=== PATIENT | male | born 1950 | race Caucasian/White ===

== ENCOUNTER 2016-12-24 00:24 | Inpatient (IN) | payer BC, MEDICARE ==
--- NOTE | 2016-12-24 00:42 | RADIOLOGY REPORT (SQ) ---
EXAM DESCRIPTION: CT HEAD WITHOUT COMPLETED DATE/TIME: 12/24/2016 12:30 am REASON FOR STUDY: stroke alert COMPARISON: None. TECHNIQUE: Axial images acquired through the brain without intravenous contrast. Images reviewed wi th bone, brain and subdural windows. Images stored on PACS. All CT scanners at this facility use dose modulation, iterative reconstruction, and/or weight based d osing when appropriate to reduce radiation dose to as low as reasonably achievable (ALARA). [facility]: Dose Right [facility]: CareDose [facility]: Dose Right [facility]: Teradose 4D [facility]: Smart The Editorialist RADIATION DOSE: Up-to-date CT equipment and radiation dose reduction techniques were employed. CTDIv ol: 64.6 mGy. DLP: 1163 mGy-cm. mGy. LIMITATIONS: None. FINDINGS: VENTRICLES: Normal size and contour. CEREBRUM: No masses. No hemorrhage. No midline shift. Normal cherry/white matter differentiation. N o evidence for acute infarction. CEREBELLUM: No masses. No hemorrhage. No alteration of density. No evidence for acute infarction. EXTRAAXIAL SPACES: No fluid collections. No masses. ORBITS AND GLOBE: No intra- or extraconal masses. Normal contour of globe without masses. CALVARIUM: No fracture. PARANASAL SINUSES: 0.8 cm left maxillary retention cyst- mucocele. SOFT TISSUES: No mass or hematoma. OTHER: No other significant finding. IMPRESSION: No acute findings. COMMENT: This report was called to ER PROVIDER at00:33 on 12/24/2016. TECHNICAL DOCUMENTATION: JOB ID: [id number] Quality ID # [id number]: Final reports with documentation of one or more dose reduction techniques (e.g., Au tomated exposure control, adjustment of the mA and/or kV according to patient size, use of iterative reconstruction technique) 2010 [employer]- All Rights Reserved
[2016-12-24 01:01] LABS: ABSOLUTE BASOPHILS # (AUTO) 0.1 10^3/uL (0.0-0.2); ABSOLUTE EOSINOPHILS # (AUTO) 0.1 10^3/uL (0.0-0.6); ABSOLUTE LYMPHOCYTES (AUTO) 2.9 10^3/uL (0.5-4.7); ABSOLUTE MONOCYTES (AUTO) 0.6 10^3/uL (0.1-1.4); ABSOLUTE NEUT (AUTO) 4.7 10^3/uL (1.7-8.2); BASOPHILS % (AUTO) 1.2 % (0-2); EOSINOPHILS % (AUTO) 1.1 % (0-6); HEMATOCRIT 44.7 % (37.9-51.0); HEMOGLOBIN 15.3 g/dL (13.5-17.0); HGB HCT DIFFERENCE 1.2; LYMPHOCYTES % (AUTO) 34.3 % (13-45); MEAN CORPUSCULAR HEMOGLOBIN 32.3 pg (27.0-33.4); MEAN CORPUSCULAR HGB CONC 34.3 g/dL (32.0-36.0); MEAN CORPUSCULAR VOLUME 94 fl (80-97); MONOCYTES % (AUTO) 7.1 % (3-13); RED BLOOD COUNT 4.74 10^6/uL (4.35-5.55); RED CELL DISTRIBUTION WIDTH 13.2 % (11.5-14.0); SEGMENTED NEUTROPHILS % (AUTO) 56.3 % (42-78); WHITE BLOOD COUNT 8.4 10^3/uL (4.0-10.5)
--- NOTE | 2016-12-24 01:07 | RADIOLOGY REPORT (SQ) ---
EXAM DESCRIPTION: CHEST SINGLE VIEW COMPLETED DATE/TIME: 12/24/2016 12:41 am REASON FOR STUDY: stroke alert COMPARISON: None. EXAM PARAMETERS: NUMBER OF VIEWS: One view. TECHNIQUE: Single frontal radiographic view of the chest acquired. RADIATION DOSE: NA LIMITATIONS: None. FINDINGS: LUNGS AND PLEURA: No opacities, masses or pneumothorax. No pleural effusion. MEDIASTINUM AND HILAR STRUCTURES: No masses. Contour normal. HEART AND VASCULAR STRUCTURES: Heart normal in size. Normal vasculature. BONES: No acute findings. HARDWARE: None in the chest. OTHER: No other significant finding. IMPRESSION: NO ACUTE RADIOGRAPHIC FINDING IN THE CHEST. TECHNICAL DOCUMENTATION: JOB ID: [id number]
[2016-12-24 01:10] LABS: PROTHROMBIN TIME 12.5 SEC (11.4-15.4)
[2016-12-24 01:12] LABS: ALANINE AMINOTRANSFERASE 52 U/L (21-72); ALBUMIN 4.5 g/dL (3.5-5.0); ALKALINE PHOSPHATASE 144 U/L (38-126); ANION GAP 13 (5-19); ASPARTATE AMINO TRANSFERASE 36 U/L (17-59); BILIRUBIN,DIRECT 0.4 mg/dL (0.0-0.4); BILIRUBIN,TOTAL 0.6 mg/dL (0.2-1.3); BLOOD UREA NITROGEN 27 mg/dL (7-20); CALCIUM 9.9 mg/dL (8.4-10.2); CARBON DIOXIDE 25 mmol/L (22-30); CHLORIDE 104 mmol/L (98-107); CREATINE KINASE 187 U/L (55-170); CREATININE RESULT 1.56 mg/dL (0.52-1.25); GLUCOSE 94 mg/dL (75-110); POTASSIUM 4.1 mmol/L (3.6-5.0); SODIUM 141.5 mmol/L (137-145); TOTAL PROTEIN 7.4 g/dL (6.3-8.2)
[2016-12-24] MEDS ORDERED: ASPIRIN 81 MG TABLET, CHEWABLE PO ONE (01:15)
[2016-12-24] MEDS ORDERED: CLOPIDOGREL BISULFATE 300 MG TABLET PO ONE (01:15)
--- NOTE | 2016-12-24 01:15 | ER Document Report ---
ED General - General Chief Complaint: S/S of Possible Stroke Stated Complaint: POSSIBLE STROKE Time Seen by Provider: 12/24/16 01:12 Notes: Patient is a 66-year-old male with past medical history of hypertension, hyperlipidemia, prior [place] who presents with acute onset of left sided weakness and numbness now resolved. Patient states that he woke up from sleep and did have notable left-sided numbness and difficulty walking secondary to weakness. EMS was contacted and reports that time of arrival patient did have a left- sided facial droop, left upper and lower extremity weakness as well as decreased sensation. At time of arrival patient reports the symptoms have resolved. He denies any history of similar symptoms in the past. Nothing improves or worsens his symptoms. He states he has been taking all his medications as directed. He denies any headache, chest pain or shortness of breath. TRAVEL OUTSIDE OF THE [place] IN LAST 30 DAYS: No - Related Data Allergies/Adverse Reactions: lisinopril Allergy (Verified 12/24/16 00:45) Penicillins Allergy (Verified 12/24/16 00:45) Home Medications: Current Home Medications Atorvastatin Calcium 40 mg PO DAILY 12/24/16 [History] Esomeprazole Magnesium [Nexium 24Hr] 1 tab PO DAILY 12/24/16 [History] Fenofibrate Nanocrystallized [Fenofibrate] 48 mg PO DAILY 12/24/16 [History] Levothyroxine Sodium [Synthroid 0.05 mg Tablet] 50 mcg PO DAILY 12/24/16 [ History] Losartan/Hydrochlorothiazide [Hyzaar 50-12.5 Tablet] 1 tab PO DAILY 12/24/16 [ History] Past Medical History - General Information source: Patient - Social History Smoking Status: Never Smoker Frequency of alcohol use: None Drug Abuse: None Lives with: Spouse/Significant other Family History: Reviewed & Not Pertinent - Past Medical History Cardiac Medical History: Reports: Hx Hypercholesterolemia, Hx Hypertension Past Surgical History: Reports: Hx Appendectomy Review of Systems - Review of Systems Notes: Constitutional: Negative for fever. HENT: Negative for sore throat. Eyes: Negative for visual changes. Cardiovascular: Negative for chest pain. Respiratory: Negative for shortness of breath. Gastrointestinal: Negative for abdominal pain, vomiting or diarrhea. Genitourinary: Negative for dysuria. Musculoskeletal: Negative for back pain. Skin: Negative for rash. Neurological: Negative for headaches, positive for left-sided weakness and numbness now resolved 10 point ROS negative except as marked above and in HPI. Physical Exam - Vital signs Vitals: Pulse Ox 99 12/24/16 00:25 Interpretation: Normal Notes: PHYSICAL EXAMINATION: GENERAL: Well-appearing, well-nourished and in no acute distress. HEAD: Atraumatic, normocephalic. EYES: Pupils equal round and reactive to light, extraocular movements intact, sclera anicteric, conjunctiva are normal. ENT: nares patent, oropharynx clear without exudates. Moist mucous membranes. NECK: Normal range of motion, supple without lymphadenopathy LUNGS: Breath sounds clear to auscultation bilaterally and equal. No wheezes rales or rhonchi. HEART: Regular rate and rhythm without murmurs ABDOMEN: Soft, nontender, normoactive bowel sounds. No guarding, no rebound. No masses appreciated. EXTREMITIES: Normal range of motion, no pitting or edema. No cyanosis. NEUROLOGICAL: Face symmetric. Tongue protrudes midline. Extraocular motions intact. Pupils are 2 mm and equally reactive. Normal speech, normal gait. 5 out of 5 strength in both the distal and proximal upper and lower extremities bilaterally. Sensation is grossly intact throughout. Finger to nose testing normal. Pronator drift normal. PSYCH: Normal mood, normal affect. SKIN: Warm, Dry, normal turgor, no rashes or lesions noted. Course - Re-evaluation Re-evalutation: 12/24/16 0040 Patient presents with findings most consistent with a TIA. Patient had a left- sided filter droop and left-sided weakness with associated numbness per EMS on initial exam. At time of my assessment patient has no focal neurologic deficits , NIH stroke scale is 0. Total symptom time appears to be approximately 45 minutes. Patient does have multiple risk factors including hypertension, hyperlipidemia and a prior smoking history. He is CT of the head is unremarkable. Initial laboratories likewise without any acute findings. He has been given an aspirin and will be admitted to the hospitalist service 12/24/16 02:04 ABCD2 score is calculated to 5 placing patient in a moderate to high risk group. He remains without any neurologic symptoms. He has been given a load of Plavix as well as aspirin. I have discussed this case with Dr. Nehemias Flores who will admit. - Vital Signs Vital signs: Temp Pulse Resp BP Pulse Ox 97 16 164/94 H 99 12/24/16 00:26 12/24/16 00:48 12/24/16 00:48 12/24/16 00:48 - Laboratory Result Diagrams: 12/24/16 00:44 12/24/16 00:44 Laboratory results interpreted by me: 12/24/16 00:44 BUN 27 H Creatinine 1.56 H Est GFR ( Amer) 54 L Est GFR (Non-Af Amer) 45 L Alkaline Phosphatase 144 H Creatine Kinase 187 H - Diagnostic Test Radiology reviewed: Image reviewed, Reports reviewed Radiology results interpreted by me: 12/24/16 02:05 CT head: No acute intracranial bleed 12/24/16 02:05 Chest x-ray: No acute infiltrate or pneumothorax - EKG Interpretation by Me Additional EKG results interpreted by me: 12/24/16 02:05 Sinus bradycardia. Rate 58. No ST elevations or depressions. QTC is 393. Discharge - Discharge Clinical Impression: TIA (transient ischemic attack) Qualifiers: Transient cerebral ischemia type: unspecified Qualified Code(s): G45.9 - Transient cerebral ischemic attack, unspecified Condition: Fair Disposition: ADMITTED OBSERVATION Admitting Provider: Hospitalist - Mark Unit Admitted: [facility]
[2016-12-24 01:29] LABS: TROPONIN I < 0.012 ng/mL
[2016-12-24] MEDS ORDERED: ATORVASTATIN CALCIUM 80 MG TABLET PO ONE ×2 (02:06→09:00)
[2016-12-24] MEDS ORDERED: ACETAMINOPHEN 325 MG TABLET PO PRN (02:07)
--- NOTE | 2016-12-24 05:52 | PDOC H&P ---
History of Present Illness Admission Date/PCP: 12/24/16 02:07 DORYS AVERY PA-C Patient complains of: Left-sided weakness History of Present Illness: MARTINE DUNHAM is a 66 year old male with a past medical history of hypertension, dyslipidemia and hypothyroidism who would been in his usual state of health until approximately 1 hour prior to presentation with left-sided numbness and weakness followed by left facial droop. Brought to the emergency room for evaluation is found to be significantly improved but with residual symptoms and a blood pressure of 198/111. He denies previous episode, change in medications, headache, chest pain or palpitations receives aspirin and Plavix and has CT brain, EKG and lab work. He is referred to the hospitalist for admission. Past Medical History Cardiac Medical History: Reports: Hyperlipidema, Hypertension Past Surgical History Past Surgical History: Reports: Appendectomy Social History Lives with: Spouse/Significant other Smoking Status: Never Smoker Frequency of Alcohol Use: None Drugs: None - Advance Directive Resuscitation Status: Full Code Family History Family History: CAD, Hypertension Parental Family History Reviewed: Yes Children Family History Reviewed: Yes Sibling(s) Family History Reviewed.: Yes Medication/Allergy Home Medications: Atorvastatin Calcium 40 mg PO DAILY 12/24/16 Esomeprazole Magnesium [Nexium 24Hr] 1 tab PO DAILY 12/24/16 Fenofibrate Nanocrystallized [Fenofibrate] 48 mg PO DAILY 12/24/16 Levothyroxine Sodium [Synthroid 0.05 mg Tablet] 50 mcg PO DAILY 12/24/16 Losartan/Hydrochlorothiazide [Hyzaar 50-12.5 Tablet] 1 tab PO DAILY 12/24/16 Allergies/Adverse Reactions: lisinopril Allergy (Verified 12/24/16 00:45) Penicillins Allergy (Verified 12/24/16 00:45) Review of Systems Constitutional: ABSENT: chills, fever(s), headache(s), weight gain, weight loss Eyes: ABSENT: visual disturbances Ears: ABSENT: hearing changes Cardiovascular: ABSENT: chest pain, dyspnea on exertion, edema, orthropnea, palpitations Respiratory: ABSENT: cough, hemoptysis Gastrointestinal: ABSENT: abdominal pain, constipation, diarrhea, hematemesis, hematochezia, nausea, vomiting Genitourinary: ABSENT: dysuria, hematuria Musculoskeletal: ABSENT: joint swelling Integumentary: ABSENT: rash, wounds Neurological: ABSENT: abnormal gait, abnormal speech, confusion, dizziness, focal weakness, syncope Psychiatric: ABSENT: anxiety, depression, homidical ideation, suicidal ideation Endocrine: ABSENT: cold intolerance, heat intolerance, polydipsia, polyuria Hematologic/Lymphatic: ABSENT: easy bleeding, easy bruising Physical Exam Vital Signs: Temp Pulse Resp BP Pulse Ox 97 16 164/94 H 99 12/24/16 00:26 12/24/16 00:48 12/24/16 00:48 12/24/16 00:48 General appearance: PRESENT: no acute distress, well-developed, well-nourished Head exam: PRESENT: atraumatic, normocephalic Eye exam: PRESENT: conjunctiva pink, EOMI, PERRLA. ABSENT: scleral icterus Ear exam: PRESENT: normal external ear exam Mouth exam: PRESENT: moist, tongue midline Neck exam: ABSENT: carotid bruit, JVD, lymphadenopathy, thyromegaly Respiratory exam: PRESENT: clear to auscultation maria de jesus. ABSENT: rales, rhonchi, wheezes Cardiovascular exam: PRESENT: RRR, systolic murmur. ABSENT: diastolic murmur, rubs Pulses: PRESENT: normal dorsalis pedis pul Vascular exam: PRESENT: normal capillary refill GI/Abdominal exam: PRESENT: normal bowel sounds, soft. ABSENT: distended, guarding, mass, organolmegaly, rebound, tenderness Rectal exam: PRESENT: deferred Extremities exam: PRESENT: full ROM. ABSENT: calf tenderness, clubbing, pedal edema Musculoskeletal exam: PRESENT: other - Left-sided 4+ out of 5 weakness Neurological exam: PRESENT: alert, awake, oriented to person, oriented to place , oriented to time, oriented to situation, CN II-XII grossly intact. ABSENT: motor sensory deficit Psychiatric exam: PRESENT: appropriate affect, normal mood. ABSENT: homicidal ideation, suicidal ideation Skin exam: PRESENT: dry, intact, warm. ABSENT: cyanosis, rash Results Impressions: Chest X-Ray 12/24/16 00:25 IMPRESSION: NO ACUTE RADIOGRAPHIC FINDING IN THE CHEST. Head CT 12/24/16 00:25 IMPRESSION: No acute findings. Assessment & Plan - Diagnosis (1) TIA (transient ischemic attack) Qualifiers: Transient cerebral ischemia type: unspecified Qualified Code(s): G45.9 - Transient cerebral ischemic attack, unspecified Is this a current diagnosis for this admission?: Yes Plan: Residual left-sided weakness, admitted with CVA care set, permissive hypertension, aspirin and Lipitor. Follow-up imaging and labs (2) Hypertensive emergency Is this a current diagnosis for this admission?: Yes Plan: Permissive hypertension Lopressor as needed systolic pressure greater than 200. - Time Time Spent: 50 to 70 Minutes - Inpatient Certification Medical Necessity: Need Close Monitoring Due to Risk of Patient Decompensation
[2016-12-24] MEDS ORDERED: HEPARIN SOD (PORCINE) 5,000 UNIT/ML 1 ML SYRINGE SUBCUT SCH (06:00)
[2016-12-24 06:45] LABS: ANION GAP 10 (5-19); BLOOD UREA NITROGEN 28 mg/dL (7-20); CALCIUM 9.5 mg/dL (8.4-10.2); CARBON DIOXIDE 21 mmol/L (22-30); CHLORIDE 107 mmol/L (98-107); CREATININE RESULT 1.39 mg/dL (0.52-1.25); GLUCOSE 96 mg/dL (75-110); POTASSIUM 4.4 mmol/L (3.6-5.0)
[2016-12-24] MEDS ORDERED: LORAZEPAM INJ 2 MG/1 ML VIAL IV ONE (08:45)
--- NOTE | 2016-12-24 08:45 | EKG REPORT ---
SEVERITY:- ABNORMAL ECG - SINUS RHYTHM INCOMPLETE RIGHT BUNDLE BRANCH BLOCK : Confirmed by: Kalyn Carrillo 24-Dec-2016 08:45:04
[2016-12-24] MEDS ORDERED: LEVOTHYROXINE SODIUM 0.05 MG TABLET PO ONE (09:00)
[2016-12-24] MEDS ORDERED: CLOPIDOGREL BISULFATE 75 MG TABLET PO ONE (09:00)
[2016-12-24] MEDS ORDERED: LANSOPRAZOLE 15 MG TAB.RAP.DR PO ONE (09:00)
[2016-12-24] MEDS ORDERED: ESOMEPRAZOLE MAGNESIUM PO SCH (10:00)
[2016-12-24] MEDS ORDERED: LOSARTAN POTASSIUM 50 MG TABLET PO SCH (10:00)
[2016-12-24] MEDS ORDERED: ASPIRIN 81 MG TABLET, ENT COATED PO SCH (10:00)
[2016-12-24] MEDS ORDERED: LEVOTHYROXINE SODIUM 0.05 MG TABLET PO SCH (10:00)
[2016-12-24] MEDS ORDERED: LANSOPRAZOLE 15 MG TAB.RAP.DR PO SCH (10:00)
[2016-12-24] MEDS ORDERED: HYDROCHLOROTHIAZIDE 12.5 MG CAPSULE PO SCH (10:00)
[2016-12-24] MEDS ORDERED: (PENDING PHARMACY ID) (Losartan/Hydrochlorothiazide [Hyzaar 50-12.5 Tablet] 1 TAB) PO SCH (10:00)
--- NOTE | 2016-12-24 11:18 | PDOC PROGRESS REPORT ---
Subjective Progress Note for:: 12/24/16 Subjective:: Patient seen on morning rounds. He is resting in bed, family is at bedside. He presently has no facial droop. He feels he still has some mild left-sided weakness, left leg greater than left arm. He denies any previous episodes of weakness. He denies any shortness of breath, chest pain or dyspnea. He denies any arthralgias or myalgias. He did express concerns regarding the MRI ordered and his claustrophobia. Remaining review of systems are negative Physical Exam Vital Signs: Temp Pulse Resp BP Pulse Ox 97.7 F 62 16 142/72 H 97 12/24/16 07:26 12/24/16 08:00 12/24/16 08:00 12/24/16 08:00 12/24/16 08:00 Intake & Output 12/23/16 12/24/16 12/25/16 06:59 06:59 06:59 Weight 81.6 kg General appearance: PRESENT: no acute distress, well-developed, well-nourished Head exam: PRESENT: atraumatic, normocephalic Eye exam: PRESENT: conjunctiva pink, EOMI, PERRLA. ABSENT: scleral icterus Ear exam: PRESENT: bleeding Mouth exam: PRESENT: moist, tongue midline Neck exam: ABSENT: carotid bruit, JVD, lymphadenopathy, thyromegaly Respiratory exam: PRESENT: clear to auscultation maria de jesus. ABSENT: rales, rhonchi, wheezes Cardiovascular exam: PRESENT: RRR. ABSENT: diastolic murmur, rubs, systolic murmur Pulses: PRESENT: normal dorsalis pedis pul Vascular exam: PRESENT: normal capillary refill GI/Abdominal exam: PRESENT: normal bowel sounds, soft. ABSENT: distended, guarding, mass, organolmegaly, rebound, tenderness Rectal exam: PRESENT: deferred Extremities exam: PRESENT: full ROM. ABSENT: calf tenderness, clubbing, pedal edema Musculoskeletal exam: PRESENT: ambulatory, other - 4/5 strength in left sided extremities compared to right Neurological exam: PRESENT: alert, awake, oriented to person, oriented to place , oriented to time, oriented to situation, CN II-XII grossly intact, other - 4/ 5 left sided weakness left compared to right. ABSENT: motor sensory deficit Psychiatric exam: PRESENT: appropriate affect, normal mood. ABSENT: homicidal ideation, suicidal ideation Skin exam: PRESENT: abrasion Results Laboratory Results: 12/24/16 06:22 12/24/16 06:22 Sodium 138.0 Potassium 4.4 Chloride 107 Carbon Dioxide 21 L Anion Gap 10 BUN 28 H Creatinine 1.39 H Est GFR ( Amer) > 60 Est GFR (Non-Af Amer) 51 L Glucose 96 Calcium 9.5 Impressions: Chest X-Ray 12/24/16 00:25 IMPRESSION: NO ACUTE RADIOGRAPHIC FINDING IN THE CHEST. Head CT 12/24/16 00:25 IMPRESSION: No acute findings. Assessment & Plan - Diagnosis (1) TIA (transient ischemic attack) Qualifiers: Transient cerebral ischemia type: unspecified Qualified Code(s): G45.9 - Transient cerebral ischemic attack, unspecified Is this a current diagnosis for this admission?: Yes Plan: Left sided weakness, initially with left sided facial droop (2) Hypertensive emergency Is this a current diagnosis for this admission?: Yes Plan: Blood pressure is presently controlled will monitor (3) Dyslipidemia Is this a current diagnosis for this admission?: Yes - Time Time Spent with patient: 25-34 minutes Critical Time spent with patient: 15-24 minutes Medications reviewed and adjusted accordingly: Yes
--- NOTE | 2016-12-24 11:18 | RADIOLOGY REPORT (SQ) ---
EXAM DESCRIPTION: MRI HEAD WITHOUT COMPLETED DATE/TIME: 12/24/2016 10:52 am REASON FOR STUDY: Left weakness COMPARISON: Brain CT scan dated 12/24/2016 TECHNIQUE: Multiplanar imaging includes non-contrasted T1, T2, FLAIR, and diffusion with ADC map seq uences. Images stored on PACS. LIMITATIONS: None. FINDINGS: ANATOMY: No anomalies. Normal vascular flow voids. Pituitary fossa normal. CSF SPACES: Normal in size and contour. No hemorrhage. CEREBRUM: Sulci and gyri normal in size and contour. Normal white matter signal on FLAIR imaging. No evidence of hemorrhage, mass, or extraaxial fluid collection. POSTERIOR FOSSA: No signal alteration. No hemorrhage. No edema, masses or mass effect. Internal jaylan tory canals, cerebello-pontine angles, mastoids normal. DIFFUSION IMAGING: Negative for acute or sub-acute infarction. ORBITS: No masses. Globes normal. PARANASAL SINUSES: No fluid levels. Mucosa normal. OTHER: There is some increased signal intensity within the mastoid air cells on the T2 weighted seque nce and the possibility of mastoiditis should be considered. IMPRESSION: No significant intracranial abnormalities were identified. Other findings as noted abov e EVIDENCE OF ACUTE STROKE: NO. TECHNICAL DOCUMENTATION: JOB ID: [id number] [employer]- All Rights Reserved
--- NOTE | 2016-12-24 11:34 | RADIOLOGY REPORT (SQ) ---
EXAM DESCRIPTION: CAROTID DOPPLER COMPLETED DATE/TIME: 12/24/2016 11:24 am REASON FOR STUDY: tia COMPARISON: MRI brain 12/24/2016 CT brain 12/24/2016 Carotid Doppler 06/22/2014 TECHNIQUE: Grayscale ultrasound, Doppler velocity and spectra, and color Doppler images acquired of the extra-cranial carotid and vertebral arteries. Images stored on PACS. LIMITATIONS: None. FINDINGS: RIGHT CAROTID CCA Velocities: Within normal limits. ICA Velocities Peak systolic 0.63 m/s. End diastolic 0.20 m/s. Proximal ICA/CCA peak systolic ratio 0.97. Spectra normal. No significant plaque. LEFT CAROTID CCA Velocities: Within normal limits. ICA Velocities Peak systolic 0.62 m/s. End diastolic 0.20 m/s. Proximal ICA/CCA peak systolic ratio 1.3. Spectra normal. No significant plaque. VERTEBRAL ARTERIES: Antegrade flow. Normal waveforms. SUBCLAVIAN ARTERIES: Not evaluated OTHER: No other significant finding. IMPRESSION: NO HEMODYNAMICALLY SIGNIFICANT STENOSIS. COMMENT: Quality ID #[id number]: Velocity criteria are extrapolated from the diameter data as defined by t he Society of Radiologists in Ultrasound Consensus Conference. Radiology 2003: 229; 340-346. TECHNICAL DOCUMENTATION: JOB ID: [id number] [employer]- All Rights Reserved
[2016-12-24 12:17] VITALS: BP 144/72
--- NOTE | 2016-12-24 12:30 | PDOC DISCHARGE SUMMARY ---
General - Admit/Disc Date/PCP Admission Date/Primary Care Provider: 12/24/16 02:07 DORYS AVERY PA-C Discharge Date: 12/24/16 - Discharge Diagnosis (1) TIA (transient ischemic attack) Is this a current diagnosis for this admission?: Yes Summary: Continue aspirin, monitor blood pressure and check lipid profile in the am (2) Hypertensive emergency Is this a current diagnosis for this admission?: Yes Summary: Resolved (3) Dyslipidemia Is this a current diagnosis for this admission?: Yes Summary: Continue statin. Check lipid if not done in the last 6 months - Additional Information Resuscitation Status: Full Code Discharge Diet: Regular Discharge Activity: Activity As Tolerated, Balance Activity w/Rest Home Medications: Atorvastatin Calcium 40 mg PO DAILY 12/24/16 Esomeprazole Magnesium [Nexium 24Hr] 1 tab PO DAILY 12/24/16 Fenofibrate Nanocrystallized [Fenofibrate] 48 mg PO DAILY 12/24/16 Levothyroxine Sodium [Synthroid 0.05 mg Tablet] 50 mcg PO DAILY 12/24/16 Losartan/Hydrochlorothiazide [Hyzaar 50-12.5 Tablet] 1 tab PO DAILY 12/24/16 History of Present Illness Patient complains of: Left facial droop, and extremity weakness History of Present Illness: MARTINE DUNHAM is a 66 year old male with a past medical history of hypertension, dyslipidemia and hypothyroidism who would been in his usual state of health until approximately 1 hour prior to presentation with left-sided numbness and weakness followed by left facial droop. Brought to the emergency room for evaluation is found to be significantly improved but with residual symptoms and a blood pressure of 198/111. He denies previous episode, change in medications, headache, chest pain or palpitations receives aspirin and Plavix and has CT brain, EKG and lab work. He is referred to the hospitalist for admission. Hospital Course Hospital Course: Patient was admitted to [facility]. His symptoms completely subsided. MRI and carotid duplex were both done and were unremarkable. Blood pressure was normalized. He would like to go home. We will continue on aspirin therapy. He will monitor blood pressure at home. Physical Exam Vital Signs: Temp Pulse Resp BP Pulse Ox 97.9 F 59 L 18 144/72 H 98 12/24/16 12:16 12/24/16 12:16 12/24/16 12:16 12/24/16 12:16 12/24/16 12:16 Intake & Output 12/23/16 12/24/16 12/25/16 06:59 06:59 06:59 Weight 81.6 kg General appearance: PRESENT: no acute distress, well-developed, well-nourished Head exam: PRESENT: atraumatic, normocephalic Eye exam: PRESENT: conjunctiva pink, EOMI, PERRLA. ABSENT: scleral icterus Ear exam: PRESENT: normal external ear exam Mouth exam: PRESENT: moist, tongue midline Neck exam: ABSENT: carotid bruit, JVD, lymphadenopathy, thyromegaly Respiratory exam: PRESENT: clear to auscultation maria de jesus. ABSENT: rales, rhonchi, wheezes Cardiovascular exam: PRESENT: RRR. ABSENT: diastolic murmur, rubs, systolic murmur Pulses: PRESENT: normal dorsalis pedis pul Vascular exam: PRESENT: normal capillary refill GI/Abdominal exam: PRESENT: normal bowel sounds, soft. ABSENT: distended, guarding, mass, organolmegaly, rebound, tenderness Rectal exam: PRESENT: deferred Extremities exam: PRESENT: full ROM. ABSENT: calf tenderness, clubbing, pedal edema Neurological exam: PRESENT: alert, awake, oriented to person, oriented to place , oriented to time, oriented to situation, CN II-XII grossly intact. ABSENT: motor sensory deficit Psychiatric exam: PRESENT: appropriate affect, normal mood. ABSENT: homicidal ideation, suicidal ideation Skin exam: PRESENT: dry, intact, warm. ABSENT: cyanosis, rash Results Laboratory Results: 12/24/16 06:22 12/24/16 06:22 Sodium 138.0 Potassium 4.4 Chloride 107 Carbon Dioxide 21 L Anion Gap 10 BUN 28 H Creatinine 1.39 H Est GFR ( Amer) > 60 Est GFR (Non-Af Amer) 51 L Glucose 96 Calcium 9.5 Impressions: Head MRI 12/24/16 00:00 IMPRESSION: No significant intracranial abnormalities were identified. Other findings as noted above EVIDENCE OF ACUTE STROKE: NO. Chest X-Ray 12/24/16 00:25 IMPRESSION: NO ACUTE RADIOGRAPHIC FINDING IN THE CHEST. Head CT 12/24/16 00:25 IMPRESSION: No acute findings. Carotid Doppler Study 12/24/16 02:08 IMPRESSION: NO HEMODYNAMICALLY SIGNIFICANT STENOSIS. Qualifiers PATEINT BEING DISCHARGED WITH ANY OF THE FOLLOWING DIAGNOSIS?: No Plan Discharge Plan: Home Time Spent: Less than 30 Minutes
--- NOTE | 2016-12-24 16:12 | Physician Advisory Note ---
Physician Advisor ProgressNote .: [facility], I have reviewed the medical record for this patient. Physician Advisor Statement: Please consider documentin. "Left hemiparesis, resolved" 2. Status - appropriate for Outpt Obs, not Inpt. 3. R.e. suspected hypertensive emergency dx - Please document if there was more than 1 BP in the HTN-isabelle emergency range to support dx of hypertensive emergency, and the tx given, and end organ dx.s resulting, or else consider stating this dx was considered but ruled out. Status: Pt with suspected TIA should come in as Outpt Obs. This patient may have had ARF, but no prior Cr levels to compare. He had a BP of 198/111 documented in H&P. Other BPs max 160s/90s. He was given ASA & Plavix, had MRI & carotids done, f/u bloodwork. Discharged within 24 hours. Appropriate for Outpt Obs status, not Inpt. Addendum: Spoke w/Dr. Patten, covering for Lashawn Flaherty. She reported pt was changed to Obs before d/c, and that she felt pt had HTN-isabelle emergency based on the 1 BP above. Certainly with suspected TIA but normal MRI brain, and possible ARF, as possible sequelae of hypertensive emergency, there is reason to consider this dx. There appears to have been no urgent or emergent BP treatment given (in setting of suspected acute TIA vs CVA - "permissive HTN"). Usual outpatient BP med was Rx'd, at usual time. This makes it harder to appeal a denial of the dx of HTN-isabelle emergency, if one is made. CK
[2016-12-25] MEDS ORDERED: LEVOTHYROXINE SODIUM 0.05 MG TABLET PO SCH (06:00)
[2016-12-25] MEDS ORDERED: LANSOPRAZOLE 15 MG TAB.RAP.DR PO SCH (06:00)
[2016-12-25] MEDS ORDERED: CLOPIDOGREL BISULFATE 75 MG TABLET PO SCH (10:00)
--- NOTE | 2016-12-25 21:59 | XCELERA REPORT ---
[address] [address] Transthoracic Echocardiogram Report Name: MARTINE DUNHAM Age: 66 yrs Gender: Male : 1950 Patient Status: Inpatient Patient Location: [address] [place] [address] Study Date: 12/24/2016 10:21 AM Height: 67 in Weight: 180 lb BSA: 1.9 m2 Procedure: A complete two-dimensional transthoracic echocardiogram was performed (2D, M-mode, spectral and color flow Doppler). The study was technically difficult with many images being suboptimal in quality. Reason For Study: tia Ordering Physician: HARVEY MENA Performed By: Chel Fu Interpretation Summary The left ventricular ejection fraction is within normal limits. There is borderline concentric left ventricular hypertrophy. Doppler measurements suggest pseudonormalized left ventricular relaxation, which is associated with grade II/IV or mild to moderate diastolic dysfunction The left ventricle is normal in size. Wall motion cannot be accurately commented on, but no definite regional wall motion abnormalities noted. The right ventricle is borderline dilated. The right ventricular systolic function is normal. The right atrium is normal in size The left atrial size is normal. There is a trace to mild amount of mitral regurgitation There is no mitral valve stenosis. There is mild aortic stenosis There is a peak gradient of 15-20 mm of Hg. There is a mild amount of aortic regurgitation There is a trace or physiologic amount of tricuspid regurgitation Tricuspid regurgitation jet envelope not well defined to measure RV systolic pressure accurately. There is no pericardial effusion. Consider MARY if clinically indicated. May consider mobile cardiac telemetry monitoring (MCT) for ruling out transient AFIB. MMode/2D Measurements & Calculations RVDd: 2.5 cm LVIDd: 4.2 cm FS: 32.9 % Ao root diam: 3.0 cm IVSd: 0.98 cm LVIDs: 2.8 cm EDV(Teich): 78.5 ml LVPWd: 0.99 cmESV(Teich): 30.0 ml Ao root area: 7.0 cm2 EF(Teich): 61.8 % LA dimension: 3.3 cm LVOT diam: 2.0 cm LVOT area: 3.0 cm2 Doppler Measurements & Calculations MV E max dio: MV P1/2t max dio: Ao V2 max: LV V1 max P.2 cm/sec 71.0 cm/sec 200.9 cm/sec 6.5 mmHg MV A max dio: MV P1/2t: 51.6 msec Ao max PG: LV V1 mean P.6 cm/sec MVA(P1/2t): 4.3 cm2 16.2 mmHg 3.4 mmHg MV E/A: 1.0 MV dec slope: Ao V2 mean: LV V1 max: 403.0 cm/sec2 137.7 cm/sec 127.0 cm/sec Ao mean PG: LV V1 mean: 8.7 mmHg 85.3 cm/sec Ao V2 VTI: 42.2 cmLV V1 VTI: YVETTE(I,D): 2.1 cm2 28.8 cm YVETTE(V,D): 1.9 cm2 SV(LVOT): 86.6 ml PA V2 max: TR max dio: 101.7 cm/sec 204.6 cm/sec PA max P.1 mmHg TR max P.7 mmHg Left Ventricle The left ventricle is normal in size. There is borderline concentric left ventricular hypertrophy. The left ventricular ejection fraction is within normal limits. Doppler measurements suggest pseudonormalized left ventricular relaxation, which is associated with grade II/IV or mild to moderate diastolic dysfunction. Wall motion cannot be accurately commented on, but no definite regional wall motion abnormalities noted. Right Ventricle The right ventricle is borderline dilated. There is normal right ventricular wall thickness. The right ventricular systolic function is normal. Atria The right atrium is normal in size. The left atrial size is normal. Interarterial septum not well visualized and not well dopplered. Cannot comment on ASD/PFO presence. Mitral Valve The mitral valve leaflets are sclerotic, but show no functional abnormalities. There is no mitral valve stenosis. There is a trace to mild amount of mitral regurgitation. Aortic Valve The aortic valve is mildly calcified. There is mild aortic stenosis. There is a peak gradient of 15-20 mm of Hg. There is a mild amount of aortic regurgitation. Tricuspid Valve The tricuspid valve is not well visualized, but is grossly normal. There is no tricuspid stenosis. There is a trace or physiologic amount of tricuspid regurgitation. Tricuspid regurgitation jet envelope not well defined to measure RV systolic pressure accurately. Pulmonic Valve The pulmonic valve is not well visualized. Great Vessels The aortic root is not well visualized but is probably normal size. The inferior vena cava was not well visualized. Effusions There is no pericardial effusion. Incidental Findings No definite cardiac source of CVA/TIA noted on this particular trans- thoracic study. Consider MARY if clinically indicated. May consider mobile cardiac telemetry monitoring (MCT) for ruling out transient AFIB. : HARVEY MENA > Kalyn Carrillo
== END 2016-12-24 13:20 | disposition home or self-care (01) | DRG 69 ==
LOC: ER 00:24 → EH 02:07 → UNDOADMIN 02:49 → 3S 05:52
PROVIDERS: ADMIT Internal Medicine; ATTEND Internal Medicine
DX: G45.9 Transient cerebral ischemic attack, unspecified (principal); I10 Essential (primary) hypertension; E78.5 Hyperlipidemia, unspecified; E03.9 Hypothyroidism, unspecified; Z90.49 Acquired absence of other specified parts of digestive tract; Z82.49 Family history of ischemic heart disease and other diseases of the circulatory system; Z88.0 Allergy status to penicillin
CPT/HCPCS: 36415; 70450; 70551; 71010; 80048; 80053; 82550; 82553; 82962; 84484; 85025; 85610; 85730; 93005; 93010; 93306; 93880; 99285; J1644; J2060; J3490

== ENCOUNTER 2018-09-20 23:53 | Emergency (ER) | payer MEDICARE, OTHER ==
[2018-09-21] MEDS ORDERED: IPRATROPIUM/ALBUTEROL 0.5-2.5 MG/3 ML AMPUL NEB ONE ×3 (00:30→01:22)
[2018-09-21] MEDS ORDERED: PREDNISONE 20 MG TABLET PO ONE (01:19)
--- NOTE | 2018-09-21 01:29 | ER Document Report ---
ED General - General Chief Complaint: Cough Stated Complaint: DIFFICULTY BREATHING Time Seen by Provider: 09/21/18 00:26 Primary Care Provider: DORYS AVERY PA-C [Primary Care Provider] - Follow up as needed Mode of Arrival: Ambulatory Information source: Patient, Relative - TRAVEL OUTSIDE OF THE [place] IN LAST 30 DAYS: No - HPI Patient complains to provider of: Persistent cough for 2 months Onset: Other - 2 months Onset/Duration: Persistent Severity: Mild Pain Level: 2 Associated symptoms: Nonproductive cough. denies: Chills, Diarrhea, Fever, Nausea, Vomiting, Rhinnorhea Exacerbated by: Denies Relieved by: Denies Similar symptoms previously: No Recently seen / treated by doctor: No Notes: Patient is a 68-year-old male who comes in today with a persistent chest congestion and nonproductive cough for the past 2 months. It sounds as if he is seen his doctor on a number of occasions he has been on antibiotics, steroids at some point in time currently taking Briana for allergies, currently on albuterol metered-dose inhaler. He does not have any history of lung problems in the past. He is not exposed to anything on a regular basis. He has a negative smoking history. - Related Data Allergies/Adverse Reactions: lisinopril Allergy (Verified 12/24/16 00:45) Penicillins Allergy (Verified 12/24/16 00:45) Past Medical History - General Information source: Patient - Social History Smoking Status: Never Smoker Chew tobacco use (# tins/day): No Frequency of alcohol use: None Drug Abuse: None Family History: CAD, Hypertension Patient has suicidal ideation: No Patient has homicidal ideation: No - Past Medical History Cardiac Medical History: Reports: Hx Hypercholesterolemia, Hx Hypertension Renal/ Medical History: Denies: Hx Peritoneal Dialysis Psychiatric Medical History: Denies: Hx Depression Past Surgical History: Reports: Hx Appendectomy - Immunizations Hx Pneumococcal Vaccination: 10/04/14 Review of Systems - Review of Systems Notes: Constitutional: No fevers. No chills. EENT: No eye redness. No eye pain. No ear pain. No sore throat. Cardiovascular: No chest pain. No palpitations. Respiratory: Positive for nonproductive cough, positive for wheezing Gastrointestinal: No abdominal pain. No nausea, vomiting, or diarrhea. Genitourinary: Atraumatic. No lesions. No pain. No discharge. Musculoskeletal: Atraumatic. No swelling. No deformities. Skin: No rash or lesions. Lymphatic: No swollen lymph nodes. Neurologic: No headache. No syncope. Psychiatric: No suicidal or homicidal ideation. Physical Exam - Vital signs Vitals: Temp Pulse Resp BP Pulse Ox 97.8 F 63 17 161/88 H 97 09/20/18 23:58 09/20/18 23:58 09/20/18 23:58 09/20/18 23:58 09/20/18 23:58 - Notes Notes: General: Well-developed, well-nourished. In no acute distress. Non-toxic appearing. Cardiac: Well-perfused. Regular rate and rhythm. No murmurs, rubs, or gallops. Pulmonary: Bilateral end expiratory wheezes and rhonchi. No respiratory distress. No retractions. Abdominal: Non-distended. Non-rigid. Bowels sounds are present in all four quadrants. No guarding or rebound. HEENT: Head is atraumatic. Conjunctivae not reddened. No tearing. PERRL. EOMI. Orbits atraumatic. No periorbital swelling or erythema. Oropharynx is without erythema, swelling, or exudates. Neck: Supple. No adenopathy. No meningismus. Dermatologic: Warm with good turgor. No rash. Atraumatic. Chest: Atraumatic. No chest wall tenderness to palpation. Musculoskeletal: Moves all extremities well. No range of motion deficits. no muscular or joint tenderness. No paraspinal muscle tenderness. no midline spinal tenderness or step-off. Genitourinary: Examination deferred Neurologic: No gross neurologic deficits. Psychiatric: Normal mood. Course - Re-evaluation Re-evalutation: 09/21/18 01:28 Suspect that patient may have COPD. I told him that most likely he will need to follow-up with the pasteurizing supervisor if none of these therapies will help. He will get a series of DuoNeb's here and steroids as per our usual protocol. Sounds like he is already on pro-air metered-dose inhaler 2 puffs every 4 hours. I think you would likely benefit from 10 days of Biaxin to cover for an atypical bacterial infection as well as some Pulmicort metered-dose inhaler to add to his regimen and some cough syrup. 09/21/18 01:30 Antibiotics will be prescribed because patient has had symptoms for greater than 2 months. - Vital Signs Vital signs: Temp Pulse Resp BP Pulse Ox 97.8 F 63 17 161/88 H 97 09/20/18 23:58 09/20/18 23:58 09/20/18 23:58 09/20/18 23:58 09/20/18 23:58 - Diagnostic Test Radiology reviewed: Reports reviewed - Chest x-ray is negative Discharge - Discharge Clinical Impression: Bronchitis Condition: Good Disposition: HOME, SELF-CARE Instructions: Bronchitis With Bronchospasm (Wheezing) ([facility]) Additional Instructions: Continue taking your Briana for allergies. Continue using the metered-dose albuterol inhaler 2 puffs every 4 hours [id number] as needed for cough and shortness of breath. We will add Pulmicort which is aN inhaled corticosteroid which will hopefully bring some anti-inflammatory effects to your airway. We will give you Tussionex cough syrup 1 teaspoon by mouth every 12 hours as needed for intractable cough. Please be aware that this medication contains hydrocodone which is a narcotic substance which can impair your ability to drive or operate machinery. Please take this medication at home when you are not planning to be driving or operating machinery for the next 12 hours. If the symptoms do not subside you may need to follow-up with a pasteurizing supervisor and have some pulmonary function testing completed. Prescriptions: Hydrocodone/Chlorphen P-Stirex [Tussionex Pennkinetic Susp] 5 ml PO Q12HP PRN #100 ml PRN Reason: Clarithromycin [Biaxin 500 mg Tablet] 1 tab PO Q12 10 Days #20 tab Fluticasone Propionate [Flovent Hfa 44 Mcg Inhalation Aerosol 10.6 gm] 2 puff IH BID #1 inhaler Referrals: DORYS AVERY PA-C [Primary Care Provider] - Follow up as needed
--- NOTE | 2018-09-21 01:31 | RADIOLOGY REPORT (SQ) ---
EXAM DESCRIPTION: XR CHEST 2 VIEWS COMPLETED DATE/TME: 09/21/2018 00:00 CLINICAL HISTORY: 68 years Male r/o pna COMPARISON: None. FINDINGS: The cardiomediastinal silhouette appears unremarkable. No consolidating infiltrates or pleural effusions. No pneumothorax. IMPRESSION: No acute abnormality is identified.
[2018-09-21 01:58] VITALS: BP 139/59
== END 2018-09-21 01:57 | disposition home or self-care (01) ==
LOC: ER 23:53
DX: J40 Bronchitis, not specified as acute or chronic (principal); R05 Cough; R06.2 Wheezing; R09.89 Other specified symptoms and signs involving the circulatory and respiratory systems; I10 Essential (primary) hypertension; T78.40XA Allergy, unspecified, initial encounter; X58.XXXA Exposure to other specified factors, initial encounter; Z79.899 Other long term (current) drug therapy; Z88.8 Allergy status to other drugs, medicaments and biological substances; Z88.0 Allergy status to penicillin
CPT/HCPCS: 94640 ×2; 99283; 71046; A9270 ×2; J7512; J7620

== ENCOUNTER → 2019-01-14 | Outpatient (CLI) | payer MEDICARE, OTHER ==
[2019-01-14 10:01] LABS: ABSOLUTE BASOPHILS # (AUTO) 0.1 10^3/uL (0.0-0.2); ABSOLUTE EOSINOPHILS # (AUTO) 0.1 10^3/uL (0.0-0.6); ABSOLUTE LYMPHOCYTES (AUTO) 2.4 10^3/uL (0.5-4.7); ABSOLUTE MONOCYTES (AUTO) 0.5 10^3/uL (0.1-1.4); ABSOLUTE NEUT (AUTO) 3.4 10^3/uL (1.7-8.2); BASOPHILS % (AUTO) 0.9 % (0-2); EOSINOPHILS % (AUTO) 2.3 % (0-6); HEMOGLOBIN 15.1 g/dL (13.5-17.0); LYMPHOCYTES % (AUTO) 37.3 % (13-45); MEAN CORPUSCULAR HEMOGLOBIN 31.7 pg (27.0-33.4); MEAN CORPUSCULAR HGB CONC 34.2 g/dL (32.0-36.0); MEAN CORPUSCULAR VOLUME 93 fl (80-97); MONOCYTES % (AUTO) 8.3 % (3-13); PLATELET COUNT 231 10^3/uL (150-450); RED BLOOD COUNT 4.75 10^6/uL (4.35-5.55); SEGMENTED NEUTROPHILS % (AUTO) 51.2 % (42-78); TOTAL CELLS COUNTED % (AUTO) 100 %; WHITE BLOOD COUNT 6.6 10^3/uL (4.0-10.5)
[2019-01-14 10:04] LABS: APPEARANCE,URINE CLEAR; BILIRUBIN,URINE NEGATIVE (NEGATIVE); COLOR,URINE YELLOW; GLUCOSE, URINE NEGATIVE (NEGATIVE); KETONES,URINE NEGATIVE (NEGATIVE); LEUKOCYTE ESTERASE,URINE NEGATIVE (NEGATIVE); NITRITE,URINE NEGATIVE (NEGATIVE); PROTEIN,URINE NEGATIVE (NEGATIVE); URINE SPECIFIC GRAVITY 1.019; UROBILINOGEN,URINE NEGATIVE mg/dL (<2.0)
[2019-01-14 10:20] LABS: ALBUMIN 4.3 g/dL (3.5-5.0); ANION GAP 8 (5-19); BLOOD UREA NITROGEN 25 mg/dL (7-20); CALCIUM 9.6 mg/dL (8.4-10.2); CARBON DIOXIDE 30 mmol/L (22-30); CHLORIDE 103 mmol/L (98-107); GLUCOSE 95 mg/dL (75-110); PHOSPHORUS 3.1 mg/dL (2.5-4.5); POTASSIUM 4.6 mmol/L (3.6-5.0)
[2019-01-15 10:37] LABS: CREATININE URINE 159.2 mg/dL (Not Estab.); MICROALBUMIN URINE 17.8 ug/mL (Not Estab.)
== END ==
LOC: OD 09:34
PROVIDERS: ATTEND Internal Medicine Nephrology
DX: N18.3 Chronic kidney disease, stage 3 (moderate) (principal); I12.9 Hypertensive chronic kidney disease with stage 1 through stage 4 chronic kidney disease, or unspecified chronic kidney disease; E55.9 Vitamin D deficiency, unspecified
CPT/HCPCS: 36415; 80069; 81001; 82043; 82306; 82570; 83970; 85025

== ENCOUNTER 2019-02-11 10:44 | Day surgery (SDC) | payer MEDICARE, OTHER ==
[~2019-02-11 10:44] MED LIST: ACETAMINOPHEN 325 MG TABLET PO PRN
[2019-02-11] MEDS ORDERED: PROPOFOL INJ 200 MG/20 ML VIAL IV ONE (11:29)
[2019-02-11 11:32] LABS: HEMOGLOBIN 16.3 g/dL (13.5-17.0); MEAN CORPUSCULAR HEMOGLOBIN 31.8 pg (27.0-33.4); MEAN CORPUSCULAR VOLUME 93 fl (80-97); PLATELET COUNT 265 10^3/uL (150-450); RED BLOOD COUNT 5.14 10^6/uL (4.35-5.55); RED CELL DISTRIBUTION WIDTH 13.5 % (11.5-14.0); WHITE BLOOD COUNT 7.7 10^3/uL (4.0-10.5)
[2019-02-11] MEDS ORDERED: ONDANSETRON HCL INJ/PF 4 MG/2 ML SDV IV PRN (12:01)
--- NOTE | 2019-02-11 13:42 | Discharge Summary ---
Discharge Summary (SDC) - Discharge Final Diagnosis: polyps Date of Surgery: 02/11/19 Discharge Date: 02/11/19 Condition: Good Treatment or Instructions: [facility] [place] [id number] POST ENDOSCOPY DISCHARGE INSTRUCTIONS 1. Diet: Start clear liquids that a regular diet as tolerated. 2. Resume all preoperative medications. All oral anticoagulants and aspirins can be resumed 24 hours after procedure. 3. If a polypectomy was performed some bleeding per rectum may occur. This should stop within 3 days. If not, please contact the office. 4. If you had a colonoscopy you may experience some bloating and delayed return of normal bowel function for several days, your regular bowel movement pattern should resume within a week. 5. Please contact [facility] at to make an appointment with Dr. Amaya for 1 to 3 weeks following procedure. 6. If you have any questions or concerns regarding your care,treatment plan or follow up, please contact our office. Referrals: GEEN BAUMANN MD [Primary Care Provider] - Discharge Diet: As Tolerated - start with clear liquids then progress Discharge Activity: Activity As Tolerated, Balance Activity w/Rest Report the Following to Your Physician Immediately: Nausea, Vomiting, Increase in Pain, Fever over 101 Degrees, Unusual Bleeding, Drainage-Foul Smelling
--- NOTE | 2019-02-11 13:49 | Operative Report ---
Operative Report DATE OF SURGERY: 02/11/19 PREOPERATIVE DIAGNOSIS: Personal History of colon polyps POSTOPERATIVE DIAGNOSIS: same. 1. Sigmoid diverticulosis. 2. Left colon polyps x2. 3. External hemorrhoids OPERATION: 1. Colonoscopy to cecum with photodocumentation. 2. Left colon polypectomy with hot snare device x2 SURGEON: ROZ GRIFFITHS ANESTHESIA: LMAC TISSUE REMOVED OR ALTERED: Polyps left colon COMPLICATIONS: See below ESTIMATED BLOOD LOSS: Scant INTRAOPERATIVE FINDINGS: See below PROCEDURE: Obtaining informed consent the patient was taken from the preoperative holding area to the main endoscopy suite where monitoring devices were attached to the patient. Plan and surgical timeout were conducted The patient was placed in the left lateral decubitus position with knees to chest. A perianal examination was performed. There was no visible or palpable anorectal pathology. Sphincter tone was felt to be normal. The flexible adult colonoscope was advanced through the anal rectal canal, all the way to the cecum. Visualization of the cecum was achieved and the ileocecal valve, the appendiceal orifice and transillumination of the anterior abdominal wall. This was an excellent study on the well-prepped bowel. Amount of green-yellow particulate stool that flushed and aspirated easily. The colonoscope was withdrawn slowly and methodically checked and the mucosa carefully. There was no evidence of tumor, stricture, bleeding. 2 small sessile polyps less than approximately 75 cm from the anal verge. Both her device, and retrieved with the wrap. There was sent as left colon polyps in separate containers. There were moderate diverticulosis of the sigmoid colon. The scope was slowly withdrawn through the anal rectal canal. Complete visualization of the rectum was achieved with photodocumentation. External hemorrhoids appreciated, small and collapsed. The scope was withdrawn to the patient's anus. The patient tolerated the procedure well and was taken to the recovery area in stable condition. Surveillance guidelines, patient be appropriate candidate for follow-up colonoscopy in 3 to 5 years pending the results of the pathology report.
[2019-02-11 14:49] VITALS: BP 150/83
== END 2019-02-11 14:48 | disposition home or self-care (01) ==
LOC: OROUT 10:44
PROVIDERS: ATTEND Surgery
DX: Z12.11 Encounter for screening for malignant neoplasm of colon (principal); D12.6 Benign neoplasm of colon, unspecified; I10 Essential (primary) hypertension; E78.00 Pure hypercholesterolemia, unspecified; E07.9 Disorder of thyroid, unspecified; K21.9 Gastro-esophageal reflux disease without esophagitis; Z86.73 Personal history of transient ischemic attack (TIA), and cerebral infarction without residual deficits; Z79.899 Other long term (current) drug therapy
CPT/HCPCS: 45380; 45385; 36415; 84132; 85027; 88305 ×2; 00811; J2704; 811